=== PATIENT | female | born 1980 | race Caucasian/White ===

== ENCOUNTER 2019-12-13 19:27 | Emergency (ER) | payer BC ==
[~2019-12-13] VITALS: Ht 160 cm; Wt 59.1 kg
[~2019-12-13 19:27] MED LIST: IBUP-24 PO; ONDA4TAB6 PO
[2019-12-13] MEDS ORDERED: LORazepam 1 MG tablet PO ONE (19:45)
[2019-12-13] MEDS ORDERED: bacitracin 15gm ointment TP ONE (19:45)
[2019-12-13] MEDS ORDERED: LIDOcaine 1% W/epiNEPHrine 1:200,000 10ml vial IJ ONE (19:45)
[2019-12-13] MEDS ORDERED: ketamine 10mg/ml 20ml inj IV ONE (20:35)
[2019-12-13] MEDS ORDERED: ketamine 50 mg/ml 10ml vial IV ONE ×2 (20:50→21:15)
[2019-12-13] MEDS ORDERED: NORMAL SALINE IV ONE (20:55)
[2019-12-13] MEDS ORDERED: KETAMINE IV ONE (20:55)
--- NOTE | 2019-12-13 21:16 | NUR ---
PULLED KETAMINE FROM [facility] AND HANDED MEDICATION OVER TO MIGUEL RAMÍREZ IN PT ROOM FOR MODERATE SEDATION. DAYNE PLATT PRESENT
--- NOTE | 2019-12-13 21:39 | NUR ---
assumed care of pt from Mak Bassett RN is suturing lac to left thumb
[2019-12-13] MEDS ORDERED: CEPH250T PO (21:53)
[2019-12-13] MEDS ORDERED: ondansetron/PF 4mg/2ml inj IV ONE (21:55)
--- NOTE | 2019-12-13 21:55 | NUR ---
pt c/o n/v, provider aware
--- NOTE | 2019-12-13 22:32 | NUR ---
pt is recovering from sedation, pt is alert/oriented x3, resp even and unlabored, skin pale,dry, pt has been eating ice chips, quynh well, no n/v, pt does have ride home with family, [employer]p information [employer] cleaned sutures to left thumb, applied bactricin, bulky guaze dressing, thumb spica splint in place
--- NOTE | 2019-12-13 23:11 | NUR ---
pt sleeping, easily arouseable, not ready to walk yet "I can barely lift my head"
--- NOTE | 2019-12-13 23:28 | NUR ---
, Ian, is in the parking lot, aware of plan to dc when pt is more awake,
[2019-12-14 00:11] VITALS: BP 116/73
== END 2019-12-14 00:14 | disposition home or self-care (01) ==
LOC: ER 19:27
DX: S61.012A Laceration without foreign body of left thumb without damage to nail, initial encounter (principal); S61.412A Laceration without foreign body of left hand, initial encounter; Z79.2 Long term (current) use of antibiotics; Z79.899 Other long term (current) drug therapy; W26.0XXA Contact with knife, initial encounter; W45.8XXA Other foreign body or object entering through skin, initial encounter; Y93.89 Activity, other specified; Y92.89 Other specified places as the place of occurrence of the external cause; Y99.8 Other external cause status
CPT/HCPCS: 12002; 96374; 99152; 99153; 99285; J2405; 29130; 96375